=== PATIENT | female | born 1940 | race African-American/Black ===

== ENCOUNTER 2017-03-25 14:53 | Observation (INO) | payer MEDICARE, OTHER ==
[~2017-03-25] VITALS: Ht 167.6 cm; Wt 92.0 kg
[2017-03-25 14:54] VITALS: BP 176/90; PULSE 68; RESP 16; TEMP 98.5; O2SAT 99
[2017-03-25] MEDS ORDERED: SODIUM CHLOR 0.9% 1000 ML INJ 1,000 ML IV SCH (16:11)
[2017-03-25] MEDS ORDERED: CONCOR PO (16:14)
[2017-03-25] MEDS ORDERED: DIOV320T PO (16:14)
[2017-03-25] MEDS ORDERED: MORPHINE SULFATE 4 MG/ML INJ IV PUSH ONE (16:15)
[2017-03-25] MEDS ORDERED: SODIUM CHLORIDE 0.9% FLUSH 10 ML FLUSH IV FLUSH PRN ×2 (16:15→20:30)
--- NOTE | 2017-03-25 16:37 | PD ---
HPI Chief Complaint: Abdominal Pain Time Seen by Provider: 15:43 Travel History International Travel<30 days: Yes Contact w/Intl Traveler<30days: Yes Name of Country Traveled to: [place] Traveled to known affect area: No History of Present Illness HPI Patient is a 77-year-old female with history of hypertension, chronic low back pain, lumbar plexus nerve damage, presents to emergency room with complaints of abdominal pain, low back pain with numbness to her bilateral feet and legs which has been an ongoing issue for the past few months. Patient reports that in 1991, she was diagnosed with perforated diverticuli and had a colectomy. Reports that she suffered lumbar plexus damage from her colectomy and back pain with incontinence of urine and stool and sciatica since then. Reports that symptoms improved over time but patient has noticed return of symptoms over the past few months. Reports that her initial surgeries were performed in [place] at [facility], reports that she has since then moved back to [place]. Reports that the physicians in [place] will not work her up for anything because "I'm 77 and they tell me it's my time to ." Reports that she flew to [place] in December 2015 and had a work up there for this abdominal/back pain. 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 She has spondyloarthritic lumbar changes with presence of thick osteophytes more marked anterior and decreased of lumbarsacral spine." Overall: she has severe degenerative spondylolysis, severe osteopenic changes, lumbosacral instability, anterolisthesis of L4/L5 grade 1-2 Patient reports that she flew to [place] 1 week ago as she would like answers and treatment as to why she has this chronic abdominal and back pain. Reports that she has been ambulating with any assist device. Denies incontinence of urine or stool. Reports that she has been eating and drinking and having normal bowel movements. Last bowel movement was this morning. Patient with no chest pain or shortness of breath, reports "I am not leaving here without any answers." PFSH Past Medical History Cardiovascular Problems: Yes (HTN) Herniated Disk: Yes (lumbar plexus nerve damage) Hypertension: Yes ?: Not Past Surgical History Abdominal Surgery: Yes (colecomy) Hysterectomy: Yes Social History Tobacco Use: No Allergies-Medications (Allergen,Severity, Reaction): Coded Allergies: YISSEL Inhibitors (Verified Allergy, Severe, COUGH, 03/25/17) Bacitracin (Verified Allergy, Severe, Anaphylaxis, 03/25/17) Lipitor (Verified Allergy, Severe, Anaphylaxis, 03/25/17) Lyrica (Verified Allergy, Severe, HYPERTENSION, 03/25/17) Neurontin (Verified Allergy, Severe, Rash, 03/25/17) Nonsteroidal Anti-Inflammatory Agts (Verified Allergy, Severe, Anaphylaxis , 03/25/17) Tylenol (Verified Allergy, Severe, PVC'S, 03/25/17) Zocor (Verified Allergy, Severe, Anaphylaxis, 03/25/17) Reported Meds & Prescriptions Reported Meds & Active Scripts Active Reported [Concor] 2.5 Mg PO DAILY Diovan (Valsartan) 320 Mg Tab 320 Mg PO DAILY Review of Systems General / Constitutional: No: Fever Eyes: No: Visual changes HENT: No: Headaches Cardiovascular: No: Chest Pain or Discomfort Respiratory: No: Shortness of Breath Gastrointestinal: Positive: Abdominal Pain Genitourinary: No: Dysuria Musculoskeletal: Positive: Pain (chronic low back pain) Skin: No Rash Neurologic: No: Weakness Psychiatric: No: Depression Endocrine: No: Polydipsia Hematologic/Lymphatic: No: Easy Bruising Physical Exam Narrative GENERAL: NAD, nontoxic SKIN: Focused skin assessment warm/dry. HEAD: Atraumatic. Normocephalic. EYES: Pupils equal and round. No scleral icterus. No injection or drainage. ENT: No nasal bleeding or discharge. Mucous membranes pink and moist. NECK: Trachea midline. No JVD. CARDIOVASCULAR: Regular rate and rhythm. No murmur appreciated. RESPIRATORY: No accessory muscle use. Clear to auscultation. Breath sounds equal bilaterally. GASTROINTESTINAL: Abdomen soft, diffusely tender with no rebound or guarding, no saddle anesthesia MUSCULOSKELETAL: No obvious deformities. No clubbing. No cyanosis. No edema. Patient ambulating in ER with normal gait, patient with midline lower back pain with sciatic NEUROLOGICAL: Awake and alert. No obvious cranial nerve deficits. Motor grossly within normal limits. Normal speech. PSYCHIATRIC: Appropriate mood and affect; insight and judgment normal. Data Data Last Documented VS Orders Complete Blood Count With Diff (03/25/17 16:11) Comprehensive Metabolic Panel (03/25/17 16:11) Lipase (03/25/17 16:11) Prothrombin Time / Inr (Pt) (03/25/17 16:11) Act Partial Throm Time (Ptt) (03/25/17 16:11) Urinalysis - C+S If Indicated (03/25/17 16:11) Ct Abd/Pel W Iv Contrast(Rout) (03/25/17 16:11) Iv Access Insert/Monitor (03/25/17 16:11) Ecg Monitoring (03/25/17 16:11) Morphine Inj (Morphine Inj) (03/25/17 16:15) Sodium Chlor 0.9% 1000 Ml Inj (Ns 1000 M (03/25/17 16:11) Sodium Chloride 0.9% Flush (Ns Flush) (03/25/17 16:15) Ct Lumb Spine W/O Contrast (03/25/17 ) Iohexol 350 Inj (Omnipaque 350 Inj) (03/25/17 18:58) Admit Order (Ed Use Only) (03/25/17 20:15) Labs MDM Medical Decision Making Medical Screen Exam Complete: Yes Emergency Medical Condition: Yes Interpretation(s) Vital Signs Date Time Temp Pulse Resp B/P Pulse Ox O2 Delivery O2 Flow Rate FiO2 03/25/17 14:54 98.5 68 16 176/90 99 Room Air Differential Diagnosis Differential includes small bowel obstruction, chronic abdominal pain, degenerative lumbar spine disease, cauda equina though unlikely, UTI, sciatica Narrative Course Patient is a 77-year-old female who presents to emergency room with complaints of chronic abdominal pain with low back pain. Symptoms have been going on since last year, and she has sought medical advice from [place] in December 2015. Reports that there is not a physician who can help her in [place] or [place], patient here for evaluation of her chronic conditions. Reports that she has been eating and drinking, and has had a normal bowel movement today. I have low suspicion for a small bowel obstruction, because the patient's pain with palpation of her abdomen, will obtain a CAT scan of patient's abdomen pelvis with contrast. patient also c/o'ing of low back pain - ct of l spine ordered in addition to her ct of her abdomen. I do not think the patient is suffering from cauda equina syndrome as she has been ambulating, has no saddle anesthesia, denies any incontinence of urine or bowel. Plan to monitor patient on a cardiac cath lab radiology technologist, give IVF and provide symptomatic relief Diagnosis Primary Impression: Abdominal pain Additional Impression: Lumbago of lumbar region with sciatica Referrals: Siddharth Irizarry MD,Edinson Monterroso,Geovanny Michelle MD Patient Instructions: General Instructions Additional Instructions: Please provide patient with a copy of her lab work and studies at discharge Please follow up with orthopedic surgeon as well as general surgeon Please follow up with your primary care doctor Return to ER as needed or if symptoms worsen or persist Scripts Tramadol (Ultram)50 Mg Tab50 Mg PO Q8H PRN (PAIN SCALE 6 TO 10) #10 TAB Prov:Toni García 03/27/17 Pantoprazole (Protonix)40 Mg Tab40 Mg PO DAILY #30 TAB Ref 0 Prov:Toni García 03/27/17 Lidocaine (Lidoderm)5 % Adh..patch1 Patch T-DERMAL DAILY #15 PATCH Prov:Toni García 03/27/17 Amlodipine (Norvasc)5 Mg Tab5 Mg PO DAILY #30 TAB Prov:Toni García 03/27/17 Cayla Lentz DO Mar 25, 2017 16:37 Urine Specific [place] 1.022 Urine Protein TRACE mg/dL Urine Glucose (UA) NEG mg/dL Urine Ketones NEG mg/dL Urine Occult Blood NEG Urine Nitrite NEG Urine Bilirubin NEG Urine Urobilinogen LESS THAN 2.0 MG/DL Urine Leukocyte Esterase NEG Urine RBC 2 /hpf Urine WBC 1 /hpf Urine Squamous Epithelial <1 /hpf Cells Urine Bacteria RARE /hpf Urine Hyaline Casts 2 /lpf Microscopic Urinalysis Comment CULT NOT INDICATED Sodium Level 139 MEQ/L Potassium Level 4.2 MEQ/L Chloride Level 102 MEQ/L Carbon Dioxide Level 30.0 MEQ/L Anion Gap 7 MEQ/L Blood Urea Nitrogen 15 MG/DL Creatinine 0.97 MG/DL Estimat Glomerular Filtration 56 ML/MIN Rate Random Glucose 87 MG/DL Calcium Level 9.3 MG/DL Total Bilirubin 0.2 MG/DL Aspartate Amino Transf 25 U/L (AST/SGOT) Alanine Aminotransferase 23 U/L (ALT/SGPT) Alkaline Phosphatase 60 U/L Total Protein 7.5 GM/DL Albumin 3.6 GM/DL Lipase 223 U/L MDM Medical Decision Making Medical Screen Exam Complete: Yes Emergency Medical Condition: Yes Interpretation(s) Vital Signs Date Time Temp Pulse Resp B/P Pulse Ox O2 Delivery O2 Flow Rate FiO2 03/25/17 14:54 98.5 68 16 176/90 99 Room Air Differential Diagnosis Differential includes small bowel obstruction, chronic abdominal pain, degenerative lumbar spine disease, cauda equina though unlikely, UTI, sciatica Narrative Course Patient is a 77-year-old female who presents to emergency room with complaints of chronic abdominal pain with low back pain. Symptoms have been going on since last year, and she has sought medical advice from [place] in December 2015. Reports that there is not a physician who can help her in [place] or [place], patient here for evaluation of her chronic conditions. Reports that she has been eating and drinking, and has had a normal bowel movement today. I have low suspicion for a small bowel obstruction, because the patient's pain with palpation of her abdomen, will obtain a CAT scan of patient's abdomen pelvis with contrast. patient also c/o'ing of low back pain - ct of l spine ordered in addition to her ct of her abdomen. I do not think the patient is suffering from cauda equina syndrome as she has been ambulating, has no saddle anesthesia, denies any incontinence of urine or bowel. Plan to monitor patient on a cardiac cath lab radiology technologist, give IVF and provide symptomatic relief Diagnosis Primary Impression: Abdominal pain Additional Impression: Lumbago of lumbar region with sciatica Referrals: Siddharth Irizarry MD,Geovanny Vadlerrama MD, MD Patient Instructions: General Instructions Additional Instructions: Please provide patient with a copy of her lab work and studies at discharge Please follow up with orthopedic surgeon as well as general surgeon Please follow up with your primary care doctor Return to ER as needed or if symptoms worsen or persist Cayla Lentz DO Mar 25, 2017 16:37 Return to ER as needed or if symptoms worsen or persist Cayla Lentz DO Mar 25, 2017 16:37
[2017-03-25 16:46] LABS: AUTOMATED NEUTROPHIL # 4.6 TH/MM3 (1.8-7.7); BASOPHIL # 0.1 TH/MM3 (0-0.2); BASOPHIL % 0.7 % (0.0-2.0); EOSINOPHIL # 0.2 TH/MM3 (0-0.4); EOSINOPHIL % 2.3 % (0.0-4.0); HEMO FLAGS DIFF FINAL; LYMPHOCYTE # 2.5 TH/MM3 (1.0-4.8); MEAN CELL VOLUME 91.5 FL (80.0-100.0); MEAN CORPUSCULAR HEMOGLOBIN 30.2 PG (27.0-34.0); MONO % 10.2 % (0.0-8.0); NEUT % 55.8 % (16.0-70.0); PLATELET COUNT 262 TH/MM3 (150-450); RED BLOOD COUNT 4.48 MIL/MM3 (4.00-5.30); RED CELL DISTRIBUTION WIDTH 14.3 % (11.6-17.2); WHITE BLOOD COUNT 8.2 TH/MM3 (4.0-11.0)
[2017-03-25 16:50] LABS: BACTERIA, URINE RARE /hpf; BLOOD, URINE NEG (NEG); COMMENT (UR) CULT NOT INDICATED; CULTURE IF INDICATED CULT NOT INDICATED; GLUCOSE,URINE NEG (NEG); HYALINE CAST, URINE 2 /lpf (RARE); KETONE, URINE NEG (NEG); NITRITE,URINE NEG (NEG); SQUAMOUS EPITHELIAL CELL URINE <1 /hpf (0-5); URINE COLOR YELLOW (YELLW/STRAW)
[2017-03-25 16:56] LABS: APTT (PATIENT) 26.3 SEC (24.3-30.1); INTERNATIONAL NORMALIZED RATIO 0.9 RATIO; PROTHROMBIN TIME - PATIENT 10.4 SEC (9.8-11.6)
[2017-03-25 17:06] LABS: ALT (GPT) 23 U/L (10-53); ANION GAP 7 MEQ/L (5-15); AST (GOT) 25 U/L (15-37); BLOOD UREA NITROGEN 15 MG/DL (7-18); CHLORIDE 102 MEQ/L (98-107); GLOMERULAR FILTRATION RATE 56 ML/MIN (>89); POTASSIUM 4.2 MEQ/L (3.5-5.1); SODIUM (NA) 139 MEQ/L (136-145)
[2017-03-25 17:08] LABS: ALKALINE PHOSPHATASE 60 U/L (45-117); TOTAL BILIRUBIN ADULT 0.2 MG/DL (0.2-1.0)
[2017-03-25] MEDS ORDERED: IOHEXOL 350 MG/ML 10 ML VIAL (for RAD DIAG) IV ONE (18:58)
[2017-03-25 19:00] VITALS: BP 186/89; PULSE 68; RESP 18; O2SAT 100
--- NOTE | 2017-03-25 19:09 | RADRPT ---
EXAM DATE/TIME: 03/25/2017 18:45 [facility] COMPARISON: No previous studies available for comparison. INDICATIONS : Patient complains of lower abdomen pain. IV CONTRAST: 83 cc Omnipaque 350 (iohexol) IV ORAL CONTRAST: No oral contrast ingested. RADIATION DOSE: 14.99 CTDIvol (mGy) MEDICAL HISTORY : Cardiovascular disease. Hypertension. SURGICAL HISTORY : None. ENCOUNTER: Initial ACUITY: 2 months PAIN SCALE: 10/10 LOCATION: lower quadrant TECHNIQUE: Volumetric scanning of the abdomen and pelvis was performed. Using automated exposure control and ad justment of the mA and/or kV according to patient size, radiation dose was kept as low as reasonably achievable to obtain optimal diagnostic quality images. DICOM format image data is available electro nically for review and comparison. FINDINGS: LOWER LUNGS: The visualized lower lungs are clear. Compensated cardiomegaly is evident. LIVER: Prominent gallbladder is evident. Prominent common duct is evident the dilated into the head of the pancreas. There is no intrahepatic moderate ductal dilatation. SPLEEN: Normal size without lesion. PANCREAS: , Common duct into the head of pancreas mild dilatation of the pancreatic duct. Followup is suggeste d to exclude neoplasm. ADRENAL GLANDS: Within normal limits. KIDNEYS: Normal in size and shape. There is no mass, stone, or hydronephrosis.. VASCULAR: Moderate calcifications without aneurysm. BOWEL/MESENTERY: There is mild thickening of the antral wall. There is no adenopathy or induration. RETROPERITONEUM: There is no lymphadenopathy. BLADDER: No wall thickening or mass. REPRODUCTIVE: Within normal limits. ABDOMINAL WALL: Within normal limits. INGUINAL: There is no lymphadenopathy or hernia. MUSCULOSKELETAL: Moderate degenerative changes. CONCLUSION: Abnormal head of the pancreas and dilated pancreatic duct and common duct. Do not se e an etiology for the lower abdominal pain. Ramiro Eisenberg MD FACR on March 25, 2017 at 19:04 Board Certified Radiologist. This report was verified electronically.
--- NOTE | 2017-03-25 19:22 | RADRPT ---
EXAM DATE/TIME: 03/25/2017 18:45 [facility] COMPARISON: No previous studies available for comparison. INDICATIONS : Patient complains of low back pain radiating to bilateral legs with numbness. RADIATION DOSE: CTDIvol (mGy) ; Reconstructed from previous dataset, no dose MEDICAL HISTORY : Cardiovascular disease. Hypertension. SURGICAL HISTORY : None. ENCOUNTER: Initial ACUITY: 2 months PAIN SCALE: 10/10 LOCATION: low back TECHNIQUE: Volumetric scanning of the lumbar spine was performed. Multiplanar reconstructions in the sagittal, coronal and oblique axial planes were performed. Using automated exposure control and adjustment of the mA and/or kV according to patient size, radiation dose was kept as low as reasonably achievable t o obtain optimal diagnostic quality images. DICOM format image data is available electronically for review and comparison. FINDINGS: VERTEBRAE: Normal vertebral body height. Bones are osteoporotic. ALIGNMENT: Very minimal degenerative anterolisthesis of L4 is present on L5. T12-L1: The thecal sac has a normal diameter. No evidence of disc bulge or protrusion. The neural foramina are patent bilaterally. L1-L2: The thecal sac has a normal diameter. No evidence of disc bulge or protrusion. The neural foramina are patent bilaterally. L2-L3: Mild bulge is present with minimal bilateral neural foramina encroachment. Moderate degenerative jordan nge in the facets. L3-L4: Mild generalized disc bulging is present bilateral foramina encroachment and moderate degenerative ch radha in facets. Spinal stenosis is [id number]. L4-L5: Moderate to severe spinal stenosis with bilateral neural foramina encroachment and significant degene rative changes in the facets. L5-S1: Mild bulging present with minimal bilateral neural foramina encroachment. CONCLUSION: Significant spinal stenosis L4-5 bilateral neural foraminal encroachment. Moderate facet disease pre sent at multiple levels. There is no acute compression. Ramiro Eisenberg MD FACR on March 25, 2017 at 19:18 Board Certified Radiologist. This report was verified electronically.
--- NOTE | 2017-03-25 19:58 | PD ---
Data Data Last Documented VS Vital Signs Date Time Temp Pulse Resp B/P Pulse Ox O2 Delivery O2 Flow Rate FiO2 03/25/17 19:00 68 18 186/89 100 Room Air 03/25/17 14:54 98.5 Orders Complete Blood Count With Diff (03/25/17 16:11) Comprehensive Metabolic Panel (03/25/17 16:11) Lipase (03/25/17 16:11) Prothrombin Time / Inr (Pt) (03/25/17 16:11) Act Partial Throm Time (Ptt) (03/25/17 16:11) Urinalysis - C+S If Indicated (03/25/17 16:11) Ct Abd/Pel W Iv Contrast(Rout) (03/25/17 16:11) Iv Access Insert/Monitor (03/25/17 16:11) Ecg Monitoring (03/25/17 16:11) Morphine Inj (Morphine Inj) (03/25/17 16:15) Sodium Chlor 0.9% 1000 Ml Inj (Ns 1000 M (03/25/17 16:11) Sodium Chloride 0.9% Flush (Ns Flush) (03/25/17 16:15) Ct Lumb Spine W/O Contrast (03/25/17 ) Iohexol 350 Inj (Omnipaque 350 Inj) (03/25/17 18:58) Labs Laboratory Tests Test 03/25/17 16:25 White Blood Count 8.2 TH/MM3 Red Blood Count 4.48 MIL/MM3 Hemoglobin 13.5 GM/DL Hematocrit 41.0 % Mean Corpuscular Volume 91.5 FL Mean Corpuscular Hemoglobin 30.2 PG Mean Corpuscular Hemoglobin 33.0 % Concent Red Cell Distribution Width 14.3 % Platelet Count 262 TH/MM3 Mean Platelet Volume 7.1 FL Neutrophils (%) (Auto) 55.8 % Lymphocytes (%) (Auto) 31.0 % Monocytes (%) (Auto) 10.2 % Eosinophils (%) (Auto) 2.3 % Basophils (%) (Auto) 0.7 % Neutrophils # (Auto) 4.6 TH/MM3 Lymphocytes # (Auto) 2.5 TH/MM3 Monocytes # (Auto) 0.8 TH/MM3 Eosinophils # (Auto) 0.2 TH/MM3 Basophils # (Auto) 0.1 TH/MM3 CBC Comment DIFF FINAL Differential Comment Prothrombin Time 10.4 SEC Prothromb Time International 0.9 RATIO Ratio Activated Partial 26.3 SEC Thromboplast Time Urine Color YELLOW Urine Turbidity CLEAR Urine pH 7.0 Urine Specific [place] 1.022 Urine Protein TRACE mg/dL Urine Glucose (UA) NEG mg/dL Urine Ketones NEG mg/dL Urine Occult Blood NEG Urine Nitrite NEG Urine Bilirubin NEG Urine Urobilinogen LESS THAN 2.0 MG/DL Urine Leukocyte Esterase NEG Urine RBC 2 /hpf Urine WBC 1 /hpf Urine Squamous Epithelial <1 /hpf Cells Urine Bacteria RARE /hpf Urine Hyaline Casts 2 /lpf Microscopic Urinalysis Comment CULT NOT INDICATED Sodium Level 139 MEQ/L Potassium Level 4.2 MEQ/L Chloride Level 102 MEQ/L Carbon Dioxide Level 30.0 MEQ/L Anion Gap 7 MEQ/L Blood Urea Nitrogen 15 MG/DL Creatinine 0.97 MG/DL Estimat Glomerular Filtration 56 ML/MIN Rate Random Glucose 87 MG/DL Calcium Level 9.3 MG/DL Total Bilirubin 0.2 MG/DL Aspartate Amino Transf 25 U/L (AST/SGOT) Alanine Aminotransferase 23 U/L (ALT/SGPT) Alkaline Phosphatase 60 U/L Total Protein 7.5 GM/DL Albumin 3.6 GM/DL Lipase 223 U/L [facility] Supervised Visit with YURI: No Narrative Course The patient was initially evaluated by the previous provider and signed out to me at the beginning of my shift at approximately 7:[address] abdomen pelvis, CT lumbar spine, and disposition. See her note for further details. Briefly this is a 77-year-old female who presents for evaluation of abdominal pain and back pain. Patient reports history of lumbar plexus nerve damage. History of perforated diverticulitis in 1991 with colostomy at that time which was later reversed. She has been having lower abdominal pain for last 2 weeks. She is also been having severe lower back pain. She denies urinary or bowel incontinence or retention. She does endorse difficulty ambulating secondary to pain. She is also having numbness in her bilateral feet. On physical exam the patient has normal muscle strength in bilateral lower extremities. There is mild lower abdominal tenderness. Great toe extension is present bilaterally. She is continuing to complain of pain despite receiving morphine. Vital signs show heart rate 60, blood pressure 176/90, pulse ox 99% on room air , oral temp of 98.5 from high. CBC is unremarkable. CMP is unremarkable. Lipase is 223. UA shows red bacteria, not suggestive of UTI. CT abdomen pelvis: CONCLUSION: Abnormal head of the pancreas and dilated pancreatic duct and common duct. Do not see an etiology for the lower abdominal pain. CT lumbar spine: CONCLUSION: Significant spinal stenosis L4-5 bilateral neural foraminal encroachment. Moderate facet disease present at multiple levels. There is no acute compression. Patient reports no history of abnormal head of pancreas, however reports that it has not been worked up. She is not from here and does not have a local primary care physician. Case discussed with on-call barrel plater Dr. Cabrera. Patient will be admitted to the medical service with GI consultation for likely ultrasound and biopsy to rule out malignancy of the pancreatic head. Case discussed with hospitalist Dr. Blanco who will admit the patient to her service for overnight observation. Diagnosis Primary Impression: Intractable abdominal pain Additional Impressions: Abnormality of pancreatic duct Spinal stenosis at L4-L5 level Admitting Information Admitting Physician Requests: Observation Referrals: Siddharth Irizarry MD,Edinson Monterroso,Geovanny Michelle MD Patient Instructions: General Instructions Additional Instruction: Please provide patient with a copy of her lab work and studies at discharge Please follow up with orthopedic surgeon as well as general surgeon Please follow up with your primary care doctor Return to ER as needed or if symptoms worsen or persist Ash Alvarenga MD Mar 25, 2017 19:57
[2017-03-25] MEDS ORDERED: NALOXONE HCL 0.4 MG/ML AMP IV PRN (20:30)
[2017-03-25] MEDS ORDERED: HYDROmorphone HCL PF 1 MG/ML VIAL IV PUSH PRN ×2 (20:30→23:30)
[2017-03-25] MEDS: SODIUM CHLORIDE 0.9% FLUSH 10 ML FLUSH IV FLUSH SCH (21:40)
--- NOTE | 2017-03-25 22:06 | HHI.HP ---
[facility] Service [place] [facility] Primary Care Physician No Primary Care Physician Admission Diagnosis intractable abdominal pain, abnormal pancreas, spinal stenosis Diagnoses: (1) Intractable abdominal pain (2) Abnormality of pancreatic duct (3) Spinal stenosis at L4-L5 level (4) Hypertension Chief Complaint: Abdominal pain Travel History International Travel<30 Days: Yes Contact w/Intl Traveler <30 Da: Yes Name of Country Traveled to: [place] Traveled to Known Affected Are: No History of Present Illness Written by Tricia Bianchi, acting as scribe for Dr. Blanco on 03/25/17 at 21:31. Patient complained of increased abdominal pain since 1991 - feels like a tight band in the lower abdomen pushing her organs upward. Her pain has been intermittent. She has had 3 abdominal surgeries. 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 She had appendectomy and hysterectomy afterwards. Abdominal pain persisted intermittently and she was diagnosed with abdominal adhesions. She had lysis of adhesions in [place] in 2007 but the abdominal pain has progressively worsened since that surgery. She is currently having severe abdominal pain that radiates into her back and into her thighs. She has back pain that is in lower back and radiates down buttock. The pain got very bad in 2013 and has persisted since that time. The patient reports a history of Gramoxone (pesticide) poisoning in 2013. Frequent diaphoresis. Reports diminished appetite. 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 Feels spasms in her throat, not related to eating, makes her feel like she is choking. She denies dysphagia. She had an abnormal barium swallow and EGD had been recommended but the report got lost and she never had this done. Review of Systems Except as stated in HPI: all other systems reviewed are Neg Past Family Social History Past Medical History Aortic Valve Disease Spinal Stenosis Hypertension Hyperlipidemia Diverticulitis Lumbar Plexus Nerve Damage PVCs Abdominal adhesions Left rotator cuff problems Denies diabetes mellitus, CAD, CHF, atrial fibrillation, asthma, COPD/emphysema , liver problems, hepatitis, cirrhosis, kidney problems, DVT, PE, CVAs, seizures , or thyroid problems. . Past Surgical History Appendectomy Hysterectomy Colectomy Lysis of adhesions . Reported Medications Reported Meds & Active Scripts Active Reported [Concor] 2.5 Mg PO DAILY Diovan (Valsartan) 320 Mg Tab 320 Mg PO DAILY . Allergies: Coded Allergies: YISSEL Inhibitors (Verified Allergy, Severe, COUGH, 03/25/17) Bacitracin (Verified Allergy, Severe, Anaphylaxis, 03/25/17) Lipitor (Verified Allergy, Severe, Anaphylaxis, 03/25/17) Lyrica (Verified Allergy, Severe, HYPERTENSION, 03/25/17) Neurontin (Verified Allergy, Severe, Rash, 03/25/17) Nonsteroidal Anti-Inflammatory Agts (Verified Allergy, Severe, Anaphylaxis , 03/25/17) Tylenol (Verified Allergy, Severe, PVC'S, 03/25/17) Zocor (Verified Allergy, Severe, Anaphylaxis, 03/25/17) Active Ordered Medications Current Medications Morphine Sulfate 4 mg 4 mg ONCE ONCE IV PUSH ; Start 03/25/17 at 16:15; Stop at 16:16; Status DC Sodium Chloride (NS 1000 ml Inj) 1,000 ml @ 1,000 mls/hr Q1H IV Last administered on 03/25/17 16:33; Start 03/25/17 at 16:11; Stop 03/25/17 at 17:10 ; Status DC Sodium Chloride (NS Flush) 2 ml UNSCH PRN IV FLUSH FLUSH AFTER USING IV ACCESS ; Start 03/25/17 at 16:15; Stop 03/25/17 at 20:38; Status DC Iohexol (Omnipaque 350 Inj) 83 ml STK-MED ONCE IV Last administered on 18:58; Start 03/25/17 at 18:58; Stop 03/25/17 at 18:59; Status DC Sodium Chloride (NS Flush) 2 ml UNSCH PRN IV FLUSH FLUSH AFTER USING IV ACCESS ; Start 03/25/17 at 20:30 Sodium Chloride (NS Flush) 2 ml BID IV FLUSH ; Start 03/25/17 at 21:00 Naloxone HCl (Narcan Inj) 0.4 mg UNSCH PRN IV SEE LABEL COMMENTS; Start at 20:30 Hydromorphone HCl (Dilaudid Pf Inj) 0.2 mg Q4H PRN IV PUSH pain >5; Start 03/25 at 20:30 . Family History Father with diabetes, age 94 Mother 92 from complications related to advanced age . Social History Tobacco: rarely during teens, early 20's Alcohol: denies Illicit Drugs: denies Occupation: Retired nurse . Physical Exam Vital Signs Vital Signs Date Time Temp Pulse Resp B/P Pulse Ox O2 Delivery O2 Flow Rate FiO2 03/25/17 19:00 68 18 186/89 100 Room Air 03/25/17 14:54 98.5 68 16 176/90 99 Room Air Physical Exam GENERAL: This is a well-nourished, well-developed patient, somewhat anxious SKIN: No rashes, ecchymoses or lesions. Cool and dry. HEAD: Atraumatic. Normocephalic. EYES: No scleral icterus. No injection or drainage. ENT: Nose without bleeding, purulent drainage. NECK: Trachea midline. No JVD or lymphadenopathy. CARDIOVASCULAR: Regular rate and rhythm without murmurs, gallops, or rubs. RESPIRATORY: Clear to auscultation. Breath sounds equal bilaterally. No wheezes , rales, or rhonchi. GASTROINTESTINAL: Abdomen soft, non-tender, nondistended. No guarding. MUSCULOSKELETAL: Extremities without clubbing, cyanosis, or edema. No calf tenderness. NEUROLOGICAL: Awake and alert. Motor and sensory grossly within normal limits. Normal speech. . Laboratory Laboratory Tests Test 03/25/17 16:25 White Blood Count 8.2 Red Blood Count 4.48 Hemoglobin 13.5 Hematocrit 41.0 Mean Corpuscular Volume 91.5 Mean Corpuscular Hemoglobin 30.2 Mean Corpuscular Hemoglobin 33.0 Concent Red Cell Distribution Width 14.3 Platelet Count 262 Mean Platelet Volume 7.1 Neutrophils (%) (Auto) 55.8 Lymphocytes (%) (Auto) 31.0 Monocytes (%) (Auto) 10.2 Eosinophils (%) (Auto) 2.3 Basophils (%) (Auto) 0.7 Neutrophils # (Auto) 4.6 Lymphocytes # (Auto) 2.5 Monocytes # (Auto) 0.8 Eosinophils # (Auto) 0.2 Basophils # (Auto) 0.1 CBC Comment DIFF FINAL Differential Comment Prothrombin Time 10.4 Prothromb Time International 0.9 Ratio Activated Partial 26.3 Thromboplast Time Urine Color YELLOW Urine Turbidity CLEAR Urine pH 7.0 Urine Specific [place] 1.022 Urine Protein TRACE Urine Glucose (UA) NEG Urine Ketones NEG Urine Occult Blood NEG Urine Nitrite NEG Urine Bilirubin NEG Urine Urobilinogen LESS THAN 2.0 Urine Leukocyte Esterase NEG Urine RBC 2 Urine WBC 1 Urine Squamous Epithelial <1 Cells Urine Bacteria RARE Urine Hyaline Casts 2 Microscopic Urinalysis Comment CULT NOT INDICATED Sodium Level 139 Potassium Level 4.2 Chloride Level 102 Carbon Dioxide Level 30.0 Anion Gap 7 Blood Urea Nitrogen 15 Creatinine 0.97 Estimat Glomerular Filtration 56 Rate Random Glucose 87 Calcium Level 9.3 Total Bilirubin 0.2 Aspartate Amino Transf 25 (AST/SGOT) Alanine Aminotransferase 23 (ALT/SGPT) Alkaline Phosphatase 60 Total Protein 7.5 Albumin 3.6 Lipase 223 Result Diagram: 03/25/17 1625 03/25/17 1625 Imaging Last Impressions Abdomen/Pelvis CT 03/25/17 1611 Signed Impressions: Service Date/Time: March 18:45 - CONCLUSION: Abnormal head of the pancreas and dilated pancreatic duct and common duct. Do not see an etiology for the lower abdominal pain. Ramiro Eisenberg MD FACR Lumbar Spine CT 03/25/17 0000 Signed Impressions: Service Date/Time: March 18:45 - CONCLUSION: Significant spinal stenosis L4-5 bilateral neural foraminal encroachment. Moderate facet disease present at multiple levels. There is no acute compression. Ramiro Eisenberg MD FACR . Assessment and Plan Problem List: (1) Intractable abdominal pain ICD Code: R10.9 Status: Acute (2) Abnormality of pancreatic duct ICD Code: Q45.3 Status: Acute (3) Spinal stenosis at L4-L5 level ICD Code: M48.06 Status: Acute (4) Hypertension ICD Code: I10 Status: Chronic Assessment and Plan Abdominal Pain Abnormal appearing pancreas and pancreatic duct - Abdomen/Pelvis CT with contrast shows: abnormal head of the pancreas and dilated pancreatic duct and common duct. - Dilaudid 0.5 mg q3h PRN pain > 5 - consult gastroenterology Spinal Stenosis - Lumbar spine CT without contrastshows: significant spinal stenosis L4-5 bilateral neural foraminal encroachment. Moderate facet disease present at multiple levels. There is no acute compression. - consult neurosurgery Hypertension, poorly controlled; suspect due to pain - continue home Diovan - continue pain management as listed above - monitor blood pressure trends with VS checked q4h - adjust treatment as needed DVT prophylaxis - SCDs/TEDs . This note was transcribed by panibcasa [Tricia Bianchi]. I, Dr. Tiffanie Blanco personally performed the history, physical exam, and medical decision making; and confirmed the accuracy of the information in the transcribed note. Authenticated by Dr. Tiffanie Blanco on 03/25/17 at 21:31. Discussed Condition With ER physician and patient . Problem Qualifiers (1) Hypertension: Qualified Code: I10 - Essential hypertension Tricia Bianchi Mar 25, 2017 22:06 Tiffanie Blanco MD Mar 26, 2017 08:25
[2017-03-25 22:30] VITALS: BP 153/71; PULSE 60; RESP 16; O2SAT 98
[2017-03-25 23:21] VITALS: BP 144/70; PULSE 63; RESP 16; TEMP 98; O2SAT 99
[2017-03-26 00:36] VITALS: PULSE 58
[2017-03-26 04:11] VITALS: BP 165/75; PULSE 59; RESP 18; TEMP 97.7; O2SAT 98
[2017-03-26 07:18] VITALS: BP 177/84; PULSE 63; RESP 20; TEMP 97.6; O2SAT 99
[2017-03-26] MEDS: SODIUM CHLORIDE 0.9% FLUSH 10 ML FLUSH IV FLUSH SCH ×2 (07:48→21:29)
[2017-03-26] MEDS ORDERED: VALSARTAN 160 MG TAB PO SCH (09:00)
[2017-03-26] MEDS ORDERED: ACETAMINOPHEN/HYDROcodone 325 MG/5 MG TAB PO PRN (09:45)
[2017-03-26] MEDS ORDERED: cloNIDine HCL 0.1 MG TAB PO PRN (09:45)
--- NOTE | 2017-03-26 09:46 | HHI.PR ---
Subjective Remarks Follow-up for abdominal pain. Patient continues to complain of lower abdominal pain that radiates to her back. She states that she's had this pain for many years, but feels like it is acutely worse recently. She states this pain was previously relieved with lysis of adhesions back in 2007, but have slowly progressed since then. She does have coughing with eating, but otherwise denies any vomiting. She states the pain medicine does ease the pain some, but does not relieve it. Pain is worse with movement. She does report right leg weakness and bilateral lower extremity paresthesias. She attributes this to previous lumbar plexus injury. She is apprehensive about pain management and physical therapy, feels like they might make her symptoms worse. Going for EGD today. Objective Vitals Vital Signs Date Time Temp Pulse Resp B/P Pulse Ox O2 Delivery O2 Flow Rate FiO2 03/26/17 07:18 97.6 63 20 177/84 99 03/26/17 04:11 97.7 59 18 165/75 98 03/26/17 00:36 58 03/25/17 23:21 98.0 63 16 144/70 99 03/25/17 22:30 60 16 153/71 98 Room Air 03/25/17 19:00 68 18 186/89 100 Room Air 03/25/17 14:54 98.5 68 16 176/90 99 Room Air Result Diagram: 03/25/17 1625 03/25/17 1625 Imaging Last Impressions Abdomen/Pelvis CT 03/25/17 1611 Signed Impressions: Service Date/Time: March 18:45 - CONCLUSION: Abnormal head of the pancreas and dilated pancreatic duct and common duct. Do not see an etiology for the lower abdominal pain. Ramiro Eisenberg MD FACR Lumbar Spine CT 03/25/17 0000 Signed Impressions: Service Date/Time: March 18:45 - CONCLUSION: Significant spinal stenosis L4-5 bilateral neural foraminal encroachment. Moderate facet disease present at multiple levels. There is no acute compression. Ramiro Eisenberg MD FACR Objective Remarks GENERAL: Well-developed well-nourished. In no acute distress. SKIN: Warm and dry. No lesions noted. HEENT: Normocephalic. Pupils equal and round. Mucous membranes pink and moist. CARDIOVASCULAR: Regular rate and rhythm. No murmur appreciated. RESPIRATORY: No accessory muscle use. Clear to auscultation. Breath sounds equal bilaterally. GASTROINTESTINAL: Abdomen soft, nondistended. Mild lower abdominal TTP. Bowel sounds x4. MUSCULOSKELETAL: No obvious deformities. No clubbing or cyanosis. No edema. NEUROLOGICAL: Awake and alert. Strength 5/5 bilateral lower extremities. Subjectively decreased sensation in the right lower extremity. Moves upper and lower extremities spontaneously. Normal speech. PSYCHIATRIC: Appropriate mood and affect; insight and judgment normal. A/P Problem List: (1) Intractable abdominal pain ICD Code: R10.9 Status: Acute (2) Abnormality of pancreatic duct ICD Code: Q45.3 Status: Acute (3) Spinal stenosis at L4-L5 level ICD Code: M48.06 Status: Acute (4) Hypertension ICD Code: I10 Status: Chronic Assessment and Plan 77-year-old female with a past medical history of hypertension and chronic abdominal pain who presented for acute worsening of lower abdominal pain Abdominal Pain Abnormal appearing pancreas and pancreatic duct on CT. LFTs and lipase within normal limits. - Abdomen/Pelvis CT with contrast shows: abnormal head of the pancreas and dilated pancreatic duct and common duct. - Oral and intravenous narcotics as needed for pain - consulted gastroenterology, ordered tumor markers and planning on EGD Spinal Stenosis Reviewed: Lumbar spine CT without contrast shows: significant spinal stenosis L4 -5 bilateral neural foraminal encroachment; Moderate facet disease present at multiple levels; There is no acute compression. - consulted neurosurgery - Pain control as above - PT when cleared by neurosurgery Hypertension: Chronic. Not well-controlled. - continue home Diovan - continue pain management as listed above - Clonidine as needed - adjust treatment as needed DVT prophylaxis - SCDs/TEDs Discharge Planning Follow-up specialist recommendations. Problem Qualifiers (1) Hypertension: Qualified Code: I10 - Essential hypertension Toni García Mar 26, 2017 09:46
--- NOTE | 2017-03-26 10:08 | MB ---
cc: YANET GREEN MD, HAROLD H. JR. MD DATE OF CONSULTATION 03/26/2017 REASON FOR CONSULTATION Epigastric pain and the lower abdominal pain referred by Yanet Green. HISTORY Venita is a an elderly -[place] female from [place] who complains of some epigastric pain which is mild to moderate in severity, associated with some dysphagia. She states that she feels food stick in the lower part of her chest after she swallows. This has been present for some time off and on. Also, she complains of lower abdominal discomfort that has been present for many years since she had surgery for an apparent ruptured diverticulitis. She has undergone surgeries in the past for lysis of adhesions. She also has found on CT scan enlargement of the head of the pancreas with dilatation of the pancreatic duct and bile duct. She reports that this has been evaluated in the past few years ago in [place] with what sounds like endoscopic ultrasound. She did have a colonoscopy many years ago. PAST MEDICAL HISTORY Positive for: 1. Spinal stenosis 2. Hypertension. 3. She has had aortic valve disease. PAST SURGICAL HISTORY Positive for: 1. Appendectomy 2. Hysterectomy 3. Lysis of adhesions. One operation was performed in [place] for lysis of adhesions that did help her for many years. ALLERGIES INCLUDE YISSEL INHIBITORS, BACITRACIN, LIPITOR, LYRICA, NEURONTON, NONSTEROIDAL ANTI-INFLAMMATORY DRUGS, TYLENOL AND ZOCOR. FAMILY HISTORY Positive for diabetes. SOCIAL HISTORY She does not smoke or drink alcoholic beverages. She does not use any illicit drugs. She is a retired nurse. REVIEW OF SYSTEMS She denies any headache, earache, sore throat, chest pain or shortness of breath. She does not have any muscle aches or pains currently, otherwise a complete review of systems is negative. PHYSICAL EXAMINATION She is a well-developed, well-nourished -[place] female in no apparent distress. She is alert, oriented x3. Mood is normal and appropriate. HEENT: Examination is normal. There is no jaundice. NECK: There is no jugular venous distension. CHEST: Clear to auscultation and percussion. HEART: Heart sounds are normal. ABDOMEN: Soft and there is no spinal tenderness. EXTREMITIES: Without cyanosis, clubbing or edema. NEUROLOGIC: Exam is grossly normal. LABORATORY AND X-RAY Shows normal white blood cell count, hematocrit 41%. The liver enzymes are normal. Lipase is normal. CT scan shows enlargement of the head of the pancreas with mild dilatation of the pancreatic duct and common bile duct. IMPRESSION 1. Enlargement of the head of pancreas which is of uncertain significance since it was evaluated a few years ago. Apparently negative for cancer. 2. Dysphagia with what sounds like a hiatal hernia and epigastric discomfort. 3. Lower abdominal discomfort with a history of diverticulitis. She is probably due for colonoscopy. PLAN 1. We will keep her n.p.o. and perform an EGD with esophageal dilatation today. 2. Consider outpatient colonoscopy in the future. 3. She may require a followup endoscopic ultrasound to assess her pancreas. We will discuss this with Dr. Call, although the chance of malignancy appears to be very low. 4. Obtains CA19-9 MD OSMAR Farr/CLARICE /8:27 AM /9:55 AM
[2017-03-26] MEDS ORDERED: PROPOFOL 200 MG/20 ML AMP IV ONE (11:38)
--- NOTE | 2017-03-26 11:58 | PD.CONS ---
[facility] Service Neurosurgery Consult Requested By Arianna CANTRELL Reason for Consult Lumbar stenosis Primary Care Physician No Primary Care Physician History of Present Illness 77 year old female admitted for abdominal pain. She has chronic abdominal pain. She describes it as like a tight band in the lower abdomen pushing her organs upward. Her pain has been intermittent. She has had 3 abdominal surgeries. 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 She had appendectomy and hysterectomy afterwards. Abdominal pain persisted intermittently and she was diagnosed with abdominal adhesions. She had lysis of adhesions in [place] in 2007 but the abdominal pain has progressively worsened since that surgery. She is currently having severe abdominal pain that radiates into her back and into her thighs. She has back pain that is in lower back and radiates down buttock. Her pain got very bad in 2013 and has persisted since that time. She denies any weakness in her lower extremities she denies any weakness in her lower extremities. She denies any sensory loss. She denies any incontinence of stool or urine Reports diminished appetite. 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 CT lumbar spine showed lumbar spinal stenosis. Neurosurgical consultation was requested . Past Family Social History Allergies: Coded Allergies: YISSEL Inhibitors (Verified Allergy, Severe, COUGH, 03/25/17) Bacitracin (Verified Allergy, Severe, Anaphylaxis, 03/25/17) Lipitor (Verified Allergy, Severe, Anaphylaxis, 03/25/17) Lyrica (Verified Allergy, Severe, HYPERTENSION, 03/25/17) Neurontin (Verified Allergy, Severe, Rash, 03/25/17) Nonsteroidal Anti-Inflammatory Agts (Verified Allergy, Severe, Anaphylaxis , 03/25/17) Tylenol (Verified Allergy, Severe, PVC'S, 03/25/17) Zocor (Verified Allergy, Severe, Anaphylaxis, 03/25/17) Past Medical History Aortic Valve Disease Spinal Stenosis Hypertension Hyperlipidemia Diverticulitis Lumbar Plexus Nerve Damage PVCs Abdominal adhesions Left rotator cuff problems Past Surgical History Appendectomy Hysterectomy Colectomy Lysis of adhesions . Reported Medications [Concor] 2.5 Mg PO DAILY Diovan (Valsartan) 320 Mg Tab 320 Mg PO DAILY Active Ordered Medications Current Medications Morphine Sulfate 4 mg 4 mg ONCE ONCE IV PUSH ; Start 03/25/17 at 16:15; Stop at 16:16; Status DC Sodium Chloride (NS 1000 ml Inj) 1,000 ml @ 1,000 mls/hr Q1H IV Last administered on 03/25/17 16:33; Start 03/25/17 at 16:11; Stop 03/25/17 at 17:10 ; Status DC Sodium Chloride (NS Flush) 2 ml UNSCH PRN IV FLUSH FLUSH AFTER USING IV ACCESS ; Start 03/25/17 at 16:15; Stop 03/25/17 at 20:38; Status DC Iohexol (Omnipaque 350 Inj) 83 ml STK-MED ONCE IV Last administered on 18:58; Start 03/25/17 at 18:58; Stop 03/25/17 at 18:59; Status DC Sodium Chloride (NS Flush) 2 ml UNSCH PRN IV FLUSH FLUSH AFTER USING IV ACCESS ; Start 03/25/17 at 20:30 Sodium Chloride (NS Flush) 2 ml BID IV FLUSH Last administered on 03/26/17 07: 48; Start 03/25/17 at 21:00 Naloxone HCl (Narcan Inj) 0.4 mg UNSCH PRN IV SEE LABEL COMMENTS; Start at 20:30 Hydromorphone HCl (Dilaudid Pf Inj) 0.2 mg Q4H PRN IV PUSH pain >5 Last administered on 03/25/17 22:13; Start 03/25/17 at 20:30; Stop 03/25/17 at 22:46 ; Status DC Hydromorphone HCl (Dilaudid Pf Inj) 0.5 mg Q3H PRN IV PUSH BREAKTHROUGH PAIN; Start 03/25/17 at 23:30 Valsartan (Diovan) 320 mg DAILY PO Last administered on 03/26/17 07:48; Start 03/26/17 at 09:00 Acetaminophen/ Hydrocodone Bitart ([place] 5-325 Mg) 1 tab Q6H PRN PO PAIN SCALE 6 TO 10; Start 03/26/17 at 09:45 Clonidine (Catapres) 0.1 mg Q6H PRN PO SBP> OR = 180, DBP> OR = 100; Start 07/02 at 09:45 Pantoprazole Sodium (Protonix Inj) 40 mg Q12H IV PUSH Last administered on 03/26t 13:40; Start 03/26/17 at 13:00 Propofol (Diprivan 200 Mg/20 ml Inj) 240 mg STK-MED ONCE IV ; Start 03/26/17 at 11:38; Stop 03/26/17 at 12:12; Status DC Miscellaneous Information ALL NURSING DEPARTME... UNSCH PRN .XX SEE LABEL COMMENTS; Start 03/26/17 at 12:00; Stop 03/27/17 at 11:59 Family History Father with diabetes, age 94 Mother 92 from complications related to advanced age . Social History Tobacco: rarely during teens, early 20's Alcohol: denies Illicit Drugs: denies Occupation: Retired nurse Physical Exam Vital Signs Vital Signs Date Time Temp Pulse Resp B/P Pulse Ox O2 Delivery O2 Flow Rate FiO2 03/26/17 07:18 97.6 63 20 177/84 99 03/26/17 04:11 97.7 59 18 165/75 98 03/26/17 00:36 58 03/25/17 23:21 98.0 63 16 144/70 99 03/25/17 22:30 60 16 153/71 98 Room Air 03/25/17 19:00 68 18 186/89 100 Room Air 03/25/17 14:54 98.5 68 16 176/90 99 Room Air Laboratory Laboratory Tests Test 03/25/17 16:25 White Blood Count 8.2 Red Blood Count 4.48 Hemoglobin 13.5 Hematocrit 41.0 Mean Corpuscular Volume 91.5 Mean Corpuscular Hemoglobin 30.2 Mean Corpuscular Hemoglobin 33.0 Concent Red Cell Distribution Width 14.3 Platelet Count 262 Mean Platelet Volume 7.1 Neutrophils (%) (Auto) 55.8 Lymphocytes (%) (Auto) 31.0 Monocytes (%) (Auto) 10.2 Eosinophils (%) (Auto) 2.3 Basophils (%) (Auto) 0.7 Neutrophils # (Auto) 4.6 Lymphocytes # (Auto) 2.5 Monocytes # (Auto) 0.8 Eosinophils # (Auto) 0.2 Basophils # (Auto) 0.1 CBC Comment DIFF FINAL Differential Comment Prothrombin Time 10.4 Prothromb Time International 0.9 Ratio Activated Partial 26.3 Thromboplast Time Urine Color YELLOW Urine Turbidity CLEAR Urine pH 7.0 Urine Specific [place] 1.022 Urine Protein TRACE Urine Glucose (UA) NEG Urine Ketones NEG Urine Occult Blood NEG Urine Nitrite NEG Urine Bilirubin NEG Urine Urobilinogen LESS THAN 2.0 Urine Leukocyte Esterase NEG Urine RBC 2 Urine WBC 1 Urine Squamous Epithelial <1 Cells Urine Bacteria RARE Urine Hyaline Casts 2 Microscopic Urinalysis Comment CULT NOT INDICATED Sodium Level 139 Potassium Level 4.2 Chloride Level 102 Carbon Dioxide Level 30.0 Anion Gap 7 Blood Urea Nitrogen 15 Creatinine 0.97 Estimat Glomerular Filtration 56 Rate Random Glucose 87 Calcium Level 9.3 Total Bilirubin 0.2 Aspartate Amino Transf 25 (AST/SGOT) Alanine Aminotransferase 23 (ALT/SGPT) Alkaline Phosphatase 60 Total Protein 7.5 Albumin 3.6 Lipase 223 Result Diagram: 03/25/17 1625 03/25/17 1625 Imaging Last Impressions Abdomen/Pelvis CT 03/25/17 1611 Signed Impressions: Service Date/Time: March 18:45 - CONCLUSION: Abnormal head of the pancreas and dilated pancreatic duct and common duct. Do not see an etiology for the lower abdominal pain. Ramiro Eisenberg MD FACR Lumbar Spine CT 03/25/17 0000 Signed Impressions: Service Date/Time: March 18:45 - CONCLUSION: Significant spinal stenosis L4-5 bilateral neural foraminal encroachment. Moderate facet disease present at multiple levels. There is no acute compression. Ramiro Eisebnerg MD FACR Assessment and Plan Assessment and Plan (1) Intractable abdominal pain ICD Code: R10.9 Status: Acute (2) Abnormality of pancreatic duct ICD Code: Q45.3 Status: Acute (3) Spinal stenosis at L4-L5 level ICD Code: M48.06 Status: Acute (4) Hypertension ICD Code: I10 Status: Chronic Attending Statement I have reviewed HER clinical and radiological findings. I have discussed the alternative methods of treatment including, conservative management, pain management by an interventional supervisor painting shipyard, or a surgical decompression, which should always be a last resort. She does not have any focal motor deficit or clinical evidence of cauda equina syndrome or foot drop. HeR abdominal pain is in my opinion unrelated to her lumbar stenosis. Recommend MRI of the lumbar spine. I recommend that she continue nonoperative treatment Abdominal Pain Abnormal appearing pancreas and pancreatic ductON Abdomen/Pelvis CT .- consult gastroenterology Hypertension, poorly controlled; continue home Diovan Pulmonary. Continue aggressive pulmonary toilette, nasotracheal suction, and breathing treatments with nebulizers. Daily PT and OT Nutrition. Tolerating Oral diet Renal. Continue to monitor closely urine output, BUN and creatinine Endocrine. Continue to Monitor serial Acu checks and SSI as needed in detail ID continue to monitor for signs of infection Continue Protonix for stress ulcer prophylaxis Continue Mani tahmina and SCD's for DVT prophylaxis Adrian Cruz MD Mar 26, 2017 11:58
[2017-03-26] MEDS ORDERED: DO NOT ADM ANY ANTICOAGULANT DRUGS PRN (12:00)
--- NOTE | 2017-03-26 12:05 | HHI.GIFU ---
Subjective Remarks EGD with biopsy and with balloon dilatation at GE junction. Possible small hiatal hernia. Erosive gastritis seen and biopsied. Otherwise normal. Objective Vitals I&O Vital Signs Date Time Temp Pulse Resp B/P Pulse Ox O2 Delivery O2 Flow Rate FiO2 03/26/17 07:18 97.6 63 20 177/84 99 03/26/17 04:11 97.7 59 18 165/75 98 03/26/17 00:36 58 03/25/17 23:21 98.0 63 16 144/70 99 03/25/17 22:30 60 16 153/71 98 Room Air 03/25/17 19:00 68 18 186/89 100 Room Air 03/25/17 14:54 98.5 68 16 176/90 99 Room Air Laboratory Laboratory Tests Test 03/25/17 16:25 White Blood Count 8.2 Red Blood Count 4.48 Hemoglobin 13.5 Hematocrit 41.0 Mean Corpuscular Volume 91.5 Mean Corpuscular Hemoglobin 30.2 Mean Corpuscular Hemoglobin 33.0 Concent Red Cell Distribution Width 14.3 Platelet Count 262 Mean Platelet Volume 7.1 Neutrophils (%) (Auto) 55.8 Lymphocytes (%) (Auto) 31.0 Monocytes (%) (Auto) 10.2 Eosinophils (%) (Auto) 2.3 Basophils (%) (Auto) 0.7 Neutrophils # (Auto) 4.6 Lymphocytes # (Auto) 2.5 Monocytes # (Auto) 0.8 Eosinophils # (Auto) 0.2 Basophils # (Auto) 0.1 CBC Comment DIFF FINAL Differential Comment Prothrombin Time 10.4 Prothromb Time International 0.9 Ratio Activated Partial 26.3 Thromboplast Time Urine Color YELLOW Urine Turbidity CLEAR Urine pH 7.0 Urine Specific [place] 1.022 Urine Protein TRACE Urine Glucose (UA) NEG Urine Ketones NEG Urine Occult Blood NEG Urine Nitrite NEG Urine Bilirubin NEG Urine Urobilinogen LESS THAN 2.0 Urine Leukocyte Esterase NEG Urine RBC 2 Urine WBC 1 Urine Squamous Epithelial <1 Cells Urine Bacteria RARE Urine Hyaline Casts 2 Microscopic Urinalysis Comment CULT NOT INDICATED Sodium Level 139 Potassium Level 4.2 Chloride Level 102 Carbon Dioxide Level 30.0 Anion Gap 7 Blood Urea Nitrogen 15 Creatinine 0.97 Estimat Glomerular Filtration 56 Rate Random Glucose 87 Calcium Level 9.3 Total Bilirubin 0.2 Aspartate Amino Transf 25 (AST/SGOT) Alanine Aminotransferase 23 (ALT/SGPT) Alkaline Phosphatase 60 Total Protein 7.5 Albumin 3.6 Lipase 223 Physical Exam HEENT: Pupils round and reactive to light; normocephalic; atraumatic; no jaundice. Throat is clear. NECK: Neck is supple, no JVD, no lymphadenopathy. CHEST: Chest is clear to auscultation and percussion. CARDIAC: Regular rate and rhythm with no murmur gallop or rubs. ABDOMEN: Soft, nondistended, nontender; no hepatosplenomegaly; bowel sounds are present in all four quadrants. EXTREMITIES: No clubbing, cyanosis, or edema. SKIN: Normal; no rash; no jaundice. LICENSED DISPENSING OPTICIAN: No focal deficits; alert and oriented times three. 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 Erosive gastritis may account for epigastric pain Rec: PPI BID. Await biopsy result, if H Pylori treat for that. If no improvement in swallowing, may need repeat dilatation with savary. OK to discharge to home if stable. Regular diet. Elvis Cabrera MD Mar 26, 2017 12:05
[2017-03-26] MEDS: PANTOPRAZOLE SODIUM 40 MG VIAL IV PUSH SCH (13:40)
[2017-03-26] MEDS ORDERED: LORazepam 2 MG/ML VIAL IV PUSH ONE (15:30)
--- NOTE | 2017-03-26 15:34 | EKG ---
Date Performed: 03/26/2017 Time Performed: 10:32:40 PTAGE: 77 years EKG: Sinus rhythm BORDERLINE LEFT AXIS DEVIATION PROLONGED QT INTERVAL ABNORMAL ECG NO PREVIOUS TRACING DOCTOR: Edinson Harper Interpretating Date/Time 03/26/2017 15:33:11
[2017-03-26 16:55] LABS: AUTOMATED NEUTROPHIL # 6.9 TH/MM3 (1.8-7.7); BASOPHIL # 0.1 TH/MM3 (0-0.2); BASOPHIL % 0.7 % (0.0-2.0); EOSINOPHIL # 0.1 TH/MM3 (0-0.4); EOSINOPHIL % 0.9 % (0.0-4.0); HEMATOCRIT 40.5 % (35.0-46.0); LYMPH % 17.7 % (9.0-44.0); LYMPHOCYTE # 1.7 TH/MM3 (1.0-4.8); MEAN CORPUSCULAR HGB CONC 32.6 % (32.0-36.0); MONO % 7.8 % (0.0-8.0); NEUT % 72.9 % (16.0-70.0); PLATELET COUNT 234 TH/MM3 (150-450); WHITE BLOOD COUNT 9.5 TH/MM3 (4.0-11.0)
[2017-03-26 17:08] LABS: HEMO FLAGS AUTO DIFF
[2017-03-26 17:17] LABS: ANION GAP 5 MEQ/L (5-15); AST (GOT) 19 U/L (15-37); BLOOD UREA NITROGEN 15 MG/DL (7-18); CHLORIDE 101 MEQ/L (98-107); GLOMERULAR FILTRATION RATE 76 ML/MIN (>89); POTASSIUM 3.9 MEQ/L (3.5-5.1); SODIUM (NA) 136 MEQ/L (136-145)
[2017-03-26 17:18] LABS: ALT (GPT) 19 U/L (10-53)
[2017-03-26 17:20] LABS: ALKALINE PHOSPHATASE 58 U/L (45-117); TOTAL BILIRUBIN ADULT 0.3 MG/DL (0.2-1.0)
[2017-03-26 17:37] LABS: PLATELET ESTIMATE SMEAR NORMAL (NORMAL)
[2017-03-26 17:38] LABS: SCAN/DIFF AUTO DIFF CONFIRMED
[2017-03-26] MEDS: amLODIPine BESYLATE 5 MG TAB PO SCH ×2 (17:45→18:32)
[2017-03-26] MEDS ORDERED: LIDOCAINE HCL 5% PATCH T-DERMAL SCH (19:00)
[2017-03-26 20:09] VITALS: PULSE 65
[2017-03-26 21:20] VITALS: BP 165/75; PULSE 60; RESP 20; TEMP 97.5; O2SAT 99
[2017-03-26 23:36] VITALS: BP 173/76; PULSE 64; RESP 20; TEMP 98; O2SAT 100
[2017-03-27] MEDS: PANTOPRAZOLE SODIUM 40 MG VIAL IV PUSH SCH (00:06)
[2017-03-27 00:10] VITALS: PULSE 66
[2017-03-27 04:36] VITALS: BP_SYST 143; BP_SYST 177; BP_DIAS 72; BP_DIAS 82; PULSE 79; RESP 20; TEMP 97.5; O2SAT 97
[2017-03-27 05:12] VITALS: PULSE 78
[2017-03-27] MEDS ORDERED: traMADol HCL 50 MG TAB PO PRN (08:00)
--- NOTE | 2017-03-27 08:31 | HHI.PR ---
Subjective Remarks Follow-up for abdominal and back pain. Patient continues to have lower abdominal pain and lower back pain. She states the pain is worse whenever she ambulates. She has been able to ambulate to the restroom unassisted. She hasn' t really noticed any improvement with Lidoderm patch. She does not want to take anti-inflammatory medications or narcotics if possible. She doesn't really want spinal injections. She is okay continuing with physical therapy. She was unable to have MRI done with IV lorazepam secondary to claustrophobia. She states her doctor in [place] had MRIs done after giving her 2 midazolam pills. She understands that as neurosurgery recommended conservative management , she could elect to have MRI done as outpatient. She would really like to have the MRI done and would like to try Xanax instead. She understands the need to follow-up for outpatient PT, pain management, PCP, and surgery follow- up. The patient denies any urinary or bowel incontinence, no saddle anesthesia. Objective Vitals Vital Signs Date Time Temp Pulse Resp B/P Pulse Ox O2 Delivery O2 Flow Rate FiO2 03/27/17 05:12 78 03/27/17 04:36 97.5 79 20 143/72 97 03/27/17 00:10 66 03/26/17 23:36 98.0 64 20 173/76 100 03/26/17 21:20 97.5 60 20 165/75 99 03/26/17 20:09 65 03/26/17 15:51 20 03/26/17 12:55 97.6 72 16 158/80 98 Room Air 03/26/17 12:45 75 16 162/83 97 Room Air 03/26/17 12:30 78 16 160/85 96 Room Air 03/26/17 12:15 80 16 165/89 100 Nasal Cannula 3 03/26/17 12:00 97.9 87 18 169/97 99 Nasal Cannula 3 I/O 03/26/17 03/26/17 03/26/17 03/27/17 03/27/17 03/27/17 07:00 15:00 23:00 07:00 15:00 23:00 Intake Total 620 ml 980 ml Balance 620 ml 980 ml Intake Oral 420 ml 980 ml IV Total 50 ml Other 150 ml # Voids 5 1 # Bowel Movements 1 Result Diagram: 03/26/17 1614 03/26/17 1614 Imaging Last Impressions Abdomen/Pelvis CT 03/25/17 1611 Signed Impressions: Service Date/Time: March 18:45 - CONCLUSION: Abnormal head of the pancreas and dilated pancreatic duct and common duct. Do not see an etiology for the lower abdominal pain. Ramiro Eisenberg MD FACR Lumbar Spine CT 03/25/17 0000 Signed Impressions: Service Date/Time: March 18:45 - CONCLUSION: Significant spinal stenosis L4-5 bilateral neural foraminal encroachment. Moderate facet disease present at multiple levels. There is no acute compression. Ramiro Eisenberg MD FACR Objective Remarks GENERAL: Well-developed well-nourished. In no acute distress. SKIN: Warm and dry. No lesions noted. HEENT: Normocephalic. Pupils equal and round. Mucous membranes pink and moist. CARDIOVASCULAR: Regular rate and rhythm. No murmur appreciated. RESPIRATORY: No accessory muscle use. Clear to auscultation. Breath sounds equal bilaterally. GASTROINTESTINAL: Abdomen soft, nondistended, nontender. Bowel sounds x4. MUSCULOSKELETAL: No obvious deformities. No clubbing or cyanosis. No edema. NEUROLOGICAL: Awake and alert. Strength 5/5 bilateral lower extremities. Subjectively decreased sensation in the right lower extremity. Moves upper and lower extremities spontaneously. Normal speech. PSYCHIATRIC: Appropriate mood and affect; insight and judgment normal. A/P Problem List: (1) Intractable abdominal pain ICD Code: R10.9 Status: Acute (2) Abnormality of pancreatic duct ICD Code: Q45.3 Status: Acute (3) Spinal stenosis at L4-L5 level ICD Code: M48.06 Status: Acute (4) Hypertension ICD Code: I10 Status: Chronic Assessment and Plan 77-year-old female with a past medical history of hypertension and chronic abdominal pain who presented for acute worsening of lower abdominal pain Abdominal Pain: Suspect secondary to chronic adhesions. Abnormal appearing pancreas and pancreatic duct on CT. LFTs and lipase within normal limits. - Abdomen/Pelvis CT with contrast shows: abnormal head of the pancreas and dilated pancreatic duct and common duct. - Patient elected to avoid narcotics, lidocaine patch and tramadol as needed - consulted gastroenterology, performed EGD which showed gastritis, tumor markers were within normal limits, cleared by GI - Continue PPI - Continue GI follow-up. Could follow up with general surgery for assessment for adhesions, although not seen on CT scan. Spinal Stenosis Reviewed: Lumbar spine CT without contrast shows: significant spinal stenosis L4 -5 bilateral neural foraminal encroachment; Moderate facet disease present at multiple levels; There is no acute compression. - consulted neurosurgery, recommends MRI and conservative therapy with pain control, PT, and pain management - Pain control as above - PT consulted, recommends outpatient PT - Encouraged and recommended outpatient follow-up with PCP and specialists Hypertension: Chronic. Better controlled overnight. - continue home Diovan - continue pain management as listed above - Added amlodipine - Clonidine as needed - adjust treatment as needed DVT prophylaxis - SCDs/TEDs Discharge Planning Cleared by GI for discharge. Neurosurgery recommended conservative management. Follow-up results of MRI. Likely discharge later today. 1030 MRI showed mild to moderate degenerative changes, disc bulges, and canal stenosis. No significant neuro deficits on exam and patient is ambulatory with no difficulties today. Discharge home for outpatient follow-up. Problem Qualifiers (1) Hypertension: Qualified Code: I10 - Essential hypertension Toni García Mar 27, 2017 08:31
[2017-03-27] MEDS ORDERED: ALPRAZolam 1 MG TAB PO ONE (08:45)
--- NOTE | 2017-03-27 10:22 | RADRPT ---
EXAM DATE/TIME: 03/27/2017 09:24 [facility] COMPARISON: No previous studies available for comparison. INDICATIONS : Pain. Low back pain. MEDICAL HISTORY : Hypertension. SURGICAL HISTORY : Hysterectomy. Appendectomy. Oopherectomy. ENCOUNTER: Initial ACUITY: 1 day PAIN SCORE: 5/10 LOCATION: [facility] TECHNIQUE: Multiplanar multisequence MRI of the lumbar spine was performed without contrast. FINDINGS: The most caudal appearing lumbar vertebra is numbered as L5. VERTEBRAE: Homogeneous signal. A grade 1 anterior spondylolisthesis of L4 on L5 of several millimeters. DISCS: There is mild disc desiccation. [place]: Normal level and configuration. T12-L1: The thecal sac has a normal diameter. No evidence of disc bulge or protrusion. The neural foramina are patent bilaterally. L1-L2: The thecal sac has a normal diameter. No evidence of disc bulge or protrusion. The neural foramina are patent bilaterally. There are mild degenerative changes involving the facet joints. L2-L3: The thecal sac has a normal diameter. No evidence of disc bulge or protrusion. The neural foramina are patent bilaterally. There is degenerative change involving the facet joints with hypertrophy of t he ligamentum flavum and mild central canal stenosis. L3-L4: There is a mild annular disc bulge with mild flattening of the anterior thecal sac and no focal protr usion. Degenerative changes are noted involving the facet joints with hypertrophy of the ligamentum f lavum and moderate central canal stenosis. The residual thecal sac measures approximately 8 x 9 mm in greatest AP and transverse diameter. L4-L5: Annular disc bulge with flattening of the anterior thecal sac and no focal protrusion. There is narro wing of the neural foramina bilaterally. Extensive degenerative changes are noted involving the facet joints with moderate central canal stenosis. The residual thecal sac measures 7 x 8 mm in AP and tra nsverse diameter. L5-S1: The thecal sac has a normal diameter. No evidence of disc bulge or protrusion. The neural foramina are patent bilaterally. Degenerative changes are noted involving the facet joints. CONCLUSION: 1. Moderate central canal stenosis at the L3-4 and L4-5 levels secondary to disc bulges and degenerat etelvina changes involving the facets. 2. Mild central canal stenosis at the L2-3 level secondary to disc bulge and degenerative change invo lving the facets. 3. Mild grade 1 anterior spondylolisthesis of L4 on L5 of several millimeters. 4. Degenerative joint changes involving the facets greatest at the L4-5 level. Siddharth Layton MD on March 27, 2017 at 10:14 Board Certified Radiologist. This report was verified electronically.
[2017-03-27] MEDS ORDERED: LIDO5DIS5 T-DERMAL (10:30)
[2017-03-27] MEDS ORDERED: ULTR50TA5 PO (10:30)
[2017-03-27] MEDS ORDERED: PROT40TA PO (10:30)
[2017-03-27] MEDS ORDERED: AMLO5 PO (10:30)
[2017-03-27 10:50] VITALS: BP 168/70; PULSE 68; RESP 20; TEMP 97.9
[2017-03-27] MEDS ORDERED: [UNRECOGNIZED DRUG - REMARK] T-DERMAL SCH (21:00)
== END 2017-03-27 12:29 | disposition home or self-care (01) ==
LOC: NEPC 14:53 → NEDA 20:20 → NEPGCP 23:01
PROVIDERS: ADMIT Internal Medicine; ATTEND Internal Medicine
DX: R10.13 Epigastric pain (principal); M54.40 Lumbago with sciatica, unspecified side; M48.06 Spinal stenosis, lumbar region; I10 Essential (primary) hypertension; K86.89 Other specified diseases of pancreas; R61 Generalized hyperhidrosis; I35.9 Nonrheumatic aortic valve disorder, unspecified; E78.5 Hyperlipidemia, unspecified; K57.92 Diverticulitis of intestine, part unspecified, without perforation or abscess without bleeding; I49.3 Ventricular premature depolarization; Q45.3 Other congenital malformations of pancreas and pancreatic duct; K29.70 Gastritis, unspecified, without bleeding; R13.10 Dysphagia, unspecified; K22.2 Esophageal obstruction; K66.0 Peritoneal adhesions (postprocedural) (postinfection); R94.31 Abnormal electrocardiogram [ECG] [EKG]; I51.7 Cardiomegaly; M43.16 Spondylolisthesis, lumbar region
CPT/HCPCS: 00740; 43239; 43245; 72131; 72148; 74177; 80053; 81001; 82378; 83690; 85025; 85610; 85730; 86301; 88305; 88312; 93005; 96365; 96375; 96376; 97162; 99285; C1726; C9113; G0378; G8987; G8988; J1170; J2060; J7030; Q9967; G8986-GP